=== PATIENT | male | born 1930 | race Caucasian/White ===

== ENCOUNTER 2016-10-26 15:55 | Inpatient (IN) | payer MEDICARE, BC ==
[~2016-10-26] VITALS: Ht 175.3 cm; Wt 119.8 kg
[~2016-10-26 15:55] MED LIST: AMLACTIN TOP; CLOBETASOL PROP15 GM TOP; COREG12.5 MG PO; FLOMAX0.4 MG PO; HALFPRIN81 MG PO; LASIX20 MG PO; MAG-AL PLUS XS30 ML PO; NEURONTIN300 MG PO; NOVOLOG FL100 UNIT/1 SUBCUT; NOVOLOG100 UNIT/2 SUBCUT; OCUVITE EYE +1 EACH PO; PRAVACHOL20 MG PO; TOUJEO SOL300 UNIT/1 SQ; TRIAMCINOLONE A15 GM TOP; TYLENOL325 MG PO
[2016-10-27] MEDS ORDERED: ADVIL200 MG PO (09:45)
[2016-10-27] MEDS ORDERED: LASIX40 MG PO (14:40)
== END 2016-10-28 15:15 | disposition short-term general hospital (02) | DRG 206 ==
LOC: IP 15:55
PROVIDERS: ADMIT Family Medicine
DX: R09.02 Hypoxemia (principal); G47.33 Obstructive sleep apnea (adult) (pediatric); M19.072 Primary osteoarthritis, left ankle and foot; R60.9 Edema, unspecified; N35.9 Urethral stricture, unspecified; E11.22 Type 2 diabetes mellitus with diabetic chronic kidney disease; I12.9 Hypertensive chronic kidney disease with stage 1 through stage 4 chronic kidney disease, or unspecified chronic kidney disease; N18.3 Chronic kidney disease, stage 3 (moderate); D63.1 Anemia in chronic kidney disease; E11.42 Type 2 diabetes mellitus with diabetic polyneuropathy; E11.3299 Type 2 diabetes mellitus with mild nonproliferative diabetic retinopathy without macular edema, unspecified eye; E78.5 Hyperlipidemia, unspecified; N40.0 Benign prostatic hyperplasia without lower urinary tract symptoms; Z79.4 Long term (current) use of insulin; Z79.82 Long term (current) use of aspirin; Z79.899 Other long term (current) drug therapy; Z88.0 Allergy status to penicillin; Z87.891 Personal history of nicotine dependence
CPT/HCPCS: A9150; J1650; J1815; J1940

== ENCOUNTER → 2017-01-18 | Outpatient (CLI) | payer MEDICARE, BC ==
[~2017-01-18] MED LIST changes: +ADVIL200 MG PO; +LASIX40 MG PO
== END | disposition short-term general hospital (02) ==
LOC: CLPULM 12:40
DX: J44.9 Chronic obstructive pulmonary disease, unspecified (principal); G47.33 Obstructive sleep apnea (adult) (pediatric); E66.2 Morbid (severe) obesity with alveolar hypoventilation; J96.10 Chronic respiratory failure, unspecified whether with hypoxia or hypercapnia; R09.02 Hypoxemia; R60.9 Edema, unspecified; E11.22 Type 2 diabetes mellitus with diabetic chronic kidney disease; E11.622 Type 2 diabetes mellitus with other skin ulcer; N18.3 Chronic kidney disease, stage 3 (moderate); L97.919 Non-pressure chronic ulcer of unspecified part of right lower leg with unspecified severity; H91.90 Unspecified hearing loss, unspecified ear; H35.30 Unspecified macular degeneration; H54.7 Unspecified visual loss; Z86.69 Personal history of other diseases of the nervous system and sense organs; Z87.891 Personal history of nicotine dependence

== ENCOUNTER → 2017-02-15 | Outpatient (CLI) | payer MEDICARE, BC | END | disposition short-term general hospital (02) | LOC: CLPULM 12:47 | DX: J44.9 Chronic obstructive pulmonary disease, unspecified (principal); J96.11 Chronic respiratory failure with hypoxia; E66.2 Morbid (severe) obesity with alveolar hypoventilation; R60.0 Localized edema; E11.622 Type 2 diabetes mellitus with other skin ulcer; L97.919 Non-pressure chronic ulcer of unspecified part of right lower leg with unspecified severity; E11.22 Type 2 diabetes mellitus with diabetic chronic kidney disease; N18.3 Chronic kidney disease, stage 3 (moderate); H91.90 Unspecified hearing loss, unspecified ear; H35.30 Unspecified macular degeneration; H54.7 Unspecified visual loss; Z86.69 Personal history of other diseases of the nervous system and sense organs; Z85.820 Personal history of malignant melanoma of skin; Z87.891 Personal history of nicotine dependence ==